=== PATIENT | female | born 1990 | race Caucasian/White ===

== ENCOUNTER 2020-06-25 20:24 | Outpatient (CLI) | payer OTHER | END 2020-06-25 20:25 | disposition home or self-care (01) | LOC: SC 20:24 | PROVIDERS: ATTEND Internal Medicine Pulmonary Disease | DX: G47.8 Other sleep disorders (principal); R53.83 Other fatigue; G47.10 Hypersomnia, unspecified | CPT/HCPCS: 95810 ==

== ENCOUNTER 2020-06-26 06:17 | Outpatient (CLI) | payer OTHER | END 2020-06-26 06:18 | disposition home or self-care (01) | LOC: SC 06:17 | PROVIDERS: ATTEND Internal Medicine Pulmonary Disease | DX: G47.8 Other sleep disorders (principal); R53.83 Other fatigue; G47.10 Hypersomnia, unspecified | CPT/HCPCS: 95805 ==

== ENCOUNTER 2020-06-26 08:00 | Outpatient (CLI) | payer OTHER ==
[2020-06-26 16:14] LABS: MUDS CUTOFF CONCENTRATIONS CUTOFF CONC BELOW:
[2020-06-26 16:36] LABS: AMPHETAMINE SCREEN,URINE NEGATIVE (NEGATIVE); BENZODIAZEPINES SCREEN, URINE NEGATIVE (NEGATIVE); COCAINE SCREEN URINE NEGATIVE (NEGATIVE); METHADONE SCREEN, URINE NEGATIVE (NEGATIVE); METHAMPHETAMINES SCREEN, URINE NEGATIVE (NEGATIVE); OPIATE SCREEN, URINE NEGATIVE (NEGATIVE); OXYCODONE SCREEN, URINE NEGATIVE (NEGATIVE); PROPOXYPHENE SCREEN, URINE NEGATIVE (NEGATIVE); TRICYCLIC ANTIDEPRESSANT,URINE NEGATIVE (NEGATIVE)
== END 2020-06-26 23:59 | disposition home or self-care (01) ==
LOC: LAB.R 08:00
PROVIDERS: ATTEND Internal Medicine Pulmonary Disease
DX: R41.82 Altered mental status, unspecified (principal)
CPT/HCPCS: 80306

== ENCOUNTER 2020-07-09 17:33 | Outpatient (CLI) | payer OTHER ==
--- NOTE | 2020-07-09 15:15 | SLEEP CARE CONSULTATION ---
Information from patient questionnaire entered by Edwige Nettles. I have reviewed and concur with the information entered by Edwige Nettles. This document represents the service I personally performed and the decisions made by me, Juno Pedro MD, [facility]. History of Present Illness Service Date and Time: 07/09/2020 1500 Initial Morgan Sleepiness Scale score: 0 Additional HPI information: HPI: Ms. Angeles returns for follow up of the sleep study (polysomnography + multiple sleep latency test) she had on 06/2506/26/2020. The polysomnography showed that The sleep architecture was relatively normal as well. REM latency was prolonged. Respiratory monitoring showed no significant sleep disordered breathing (AHI = 0.4) or hypoxia (lucy oxygen saturation of 89%). The patient slept mostly supine (supine AHI = 0.3; non-supine = 0.60). No audible snore. There was no significant periodic leg movement of sleep. Cardiac rhythm was normal sinus rhythm without significant arrhythmia. No abnormal behavior (pa rasomnia) observed during the night. The multiple sleep latency test (MSLT) was normal. The patient was informed of these findings. I explained to her that studies were normal. Sleep Study - Results Type of Sleep Study: Polysomnography Year and Where: 06/2020 [facility] Allergies and Home Medications Drug allergies reviewed: Yes Home medication list reviewed: Yes Review of Systems Review of systems same as previous: Yes Physical Exam Height: 5 ft 3 in Impression and Plan IMPRESSION: 1. Sleep paralysis, mild, occurring once a month. The patient thinks that it is related to stress. She says that it is less frequent now. She is happy to learn that she does not have narcolepsy. No treatment is indicated at this time. An antidepressant may be considered if it happens frequently. PLAN: 1. Return for a follow up on as needed basis. Visit Type: Telehealth Video Video Type: Doximity Patient Location: Home Location of Provider: Home Patient agrees and consents to this telehealth visit type: Yes Patient agrees to have their insurance billed: Yes Time Spent with Patient (minutes): 15 Provider Statement: I spent 100% of the Telehealth Video Call with the patient with greater than 50% spent counseling the patient and coordination of care.
== END 2020-07-09 17:34 | disposition home or self-care (01) ==
LOC: SC 17:33
PROVIDERS: ATTEND Internal Medicine Pulmonary Disease
DX: G47.50 Parasomnia, unspecified (principal)

== ENCOUNTER 2021-03-24 11:00 | Emergency (ER) | payer OTHER ==
[2021-03-24 11:07] VITALS: BP 130/80
[2021-03-24 11:15] LABS: BILIRUBIN,URINE NEGATIVE (NEGATIVE); GLUCOSE, URINE (UA) NEGATIVE (NEGATIVE); KETONES,URINE (UA) NEGATIVE (NEGATIVE); LEUKOCYTE ESTERASE, URINE NEGATIVE (NEGATIVE); NITRITE,URINE NEGATIVE (NEGATIVE); OCCULT BLOOD,URINE NEGATIVE (NEGATIVE); PH,URINE 6.5 PH (5.0-7.5); PROTEIN,URINE NEGATIVE (NEGATIVE); UROBILINOGEN,URINE 0.2 (NORMAL) E.U./dL (NORMAL)
[2021-03-24 11:17] LABS: CLARITY,URINE CLEAR (CLEAR); HCG UR QUAL NEGATIVE
[2021-03-24] MEDS ORDERED: NITROFURANTOIN MACRO 100 MG CAPSULE PO STA (12:07)
[2021-03-24] MEDS ORDERED: PHENAZOPYRIDINE 100 MG TABLET PO STA (12:07)
--- NOTE | 2021-03-24 12:07 | ED Physician Documentation ---
PD HPI FEMALE - Stated complaint Stated Complaint: FEMALE - Chief complaint Chief Complaint: UTI - History obtained from History obtained from: Patient (30-year-old woman developed urinary frequency, urgency and burning dysuria today. Feels like prior bladder infections. No flank pain, nausea, or fevers.) Review of Systems Constitutional: denies: Fever, Chills Cardiac: reports: Reviewed and negative Respiratory: reports: Reviewed and negative PD PAST MEDICAL HISTORY - Present Medications Home Medications: Ambulatory Orders Medication Instructions Recorded Confirmed Nitrofurantoin [Macrobid] 1 cap PO BID #10 cap 03/24/21 Phenazopyridine HCl [Pyridium] 200 mg PO TID PRN #6 tablet 03/24/21 - Allergies Allergies/Adverse Reactions: Allergies Allergy/AdvReac Type Severity Reaction Status Date / Time No Known Drug Allergies Allergy Verified 03/24/21 11:05 PD ED PE NORMAL - Vitals Vital signs reviewed: Yes - General General: Alert and oriented X 3, No acute distress - Abdomen Abdomen: Normal bowel sounds, Soft, Non tender - Back Back: No CVA TTP, No spinal TTP - Neuro Neuro: Alert and oriented X 3, Normal speech Results - Vitals Vitals: Vital Signs - 24 hr 03/24/21 11:05 Heart Rate 90 Respiratory 16 Rate Blood Pressure 130/80 O2 Saturation 100 Oxygen O2 Source Room air - Labs Labs: Laboratory Tests 03/24/21 11:08 Urine Color YELLOW Urine Clarity CLEAR Urine pH 6.5 Ur Specific [place] <=1.005 Urine Protein NEGATIVE Urine Glucose (UA) NEGATIVE Urine Ketones NEGATIVE Urine Occult Blood NEGATIVE Urine Nitrite NEGATIVE Urine Bilirubin NEGATIVE Urine Urobilinogen 0.2 (NORMAL) Ur Leukocyte Esterase NEGATIVE Ur Microscopic Review NOT INDICATED Urine Culture Comments NOT INDICATED Urine HCG, Qual NEGATIVE PD MEDICAL DECISION MAKING - ED course ED course: Urinalysis is normal, but specific gravity is low and given the typical symptoms and lack of symptoms that would suggest an alternative diagnosis I think this still represents cystitis. Diagnosis: 1. Cystitis Departure - Departure Disposition: 01 Home, Self Care Condition: Good Record reviewed to determine appropriate education?: Yes Instructions: ED UTI Cystitis Female Prescriptions: Nitrofurantoin [Macrobid] 1 cap PO BID #10 cap Phenazopyridine HCl [Pyridium] 200 mg PO TID PRN #6 tablet PRN Reason: dysuria Comments: Prescriptions were sent electronically to [facility] in [place]. Return if you develop pain of your kidneys, fever, or are not improving over the next couple of days.
== END 2021-03-24 12:18 | disposition home or self-care (01) ==
LOC: ED 11:00
DX: N30.90 Cystitis, unspecified without hematuria (principal)
CPT/HCPCS: 81003; 81025; 99283; A9270; 81001; 87086